=== PATIENT | female | born 1980 ===

== ENCOUNTER 2021-08-10 10:30 | Inpatient (IN) | payer OTHER ==
[~2021-08-10] VITALS: Ht 167.6 cm; Wt 83.5 kg
[2021-08-10] MEDS ORDERED: MAXFE PO (13:14)
[2021-08-10] MEDS ORDERED: VITAMIN D-40010 MCG PO (13:14)
[2021-08-16] MEDS ORDERED: OXYC1TAB9 PO (07:36)
[2021-08-16] MEDS ORDERED: IBU800 MG PO (07:36)
[2021-08-16] MEDS ORDERED: ZOFRAN8 MG PO (07:36)
== END 2021-08-16 10:50 | disposition home or self-care (01) | DRG 742 ==
LOC: SURG-SUITE 08-14 09:05 → O/R 08-14 09:05 → SURH 08-14 10:30 → SURG-SUITE 08-14 20:15
PROVIDERS: Specialist; ADMIT Obstetrics & Gynecology Gynecology; ATTEND Obstetrics & Gynecology Gynecology
PROC: 0UT90ZZ Resection of Uterus, Open Approach (ICD-10-PCS; principal; 2021-08-14 16:00)
PROC: 0UT70ZZ Resection of Bilateral Fallopian Tubes, Open Approach (ICD-10-PCS; 2021-08-14 16:00)
DX: N87.1 Moderate cervical dysplasia (principal); D62 Acute posthemorrhagic anemia; Z20.822 Contact with and (suspected) exposure to COVID-19